=== PATIENT | male | born 1940 | race Caucasian/White ===

== ENCOUNTER 2016-10-19 11:30 | Outpatient (CLI) | payer BC, MEDICARE | END 2016-10-19 11:31 | disposition home or self-care (01) | DX: R53.1 Weakness (principal); R62.7 Adult failure to thrive ==

== ENCOUNTER 2021-01-18 19:10 | Outpatient (CLI) | payer BC, MEDICARE | END 2021-01-18 19:11 | disposition EMS.NT | LOC: EMS 19:10 | DX: Z04.3 Encounter for examination and observation following other accident (principal); M25.552 Pain in left hip ==

== ENCOUNTER 2021-01-19 08:51 | Outpatient (CLI) | payer BC, MEDICARE | END 2021-01-19 08:52 | disposition short-term general hospital (02) | LOC: EMS 08:51 | DX: M25.552 Pain in left hip (principal) | CPT/HCPCS: A0425; A0427 ==

== ENCOUNTER 2021-04-27 17:17 | Emergency (ER) | payer BC, MEDICARE ==
--- NOTE | 2021-04-27 18:29 | XRAY Report ---
PROCEDURE: Toe(s) RT INDICATIONS: pain after being stepped on with walker TECHNIQUE: 3 views of the right toe(s) acquired. COMPARISON: Foot radiographs dated 11/13/2018 FINDINGS: Bones: No fractures or dislocations. No suspicious bony lesions. Chronic erosion involving the bas e of the great toe proximal phalanx appears unchanged. Soft tissues: No suspicious soft tissue densities. Scattered vascular calcifications. IMPRESSION: No definite fracture however follow-up radiographs in 10 days could be performed if the patient's sym ptoms do not improve to exclude occult fracture/assess for healing sclerosis. Chronic first MTP joint erosion as above Reviewed by: Shahid Johnson MD on 04/27/2021 6:28 PM PST Approved by: Shahid Johnson MD on 04/27/2021 6:28 PM PST Station ID: [id number]
--- NOTE | 2021-04-27 19:04 | ED Physician Documentation ---
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 This injury began about 2 weeks ago when he was transferring from a wheelchair to a chair lift. He accidentally put the walker down on his foot and put the fourth weight of himself onto the walker. He has had pain since. However over time he has developed a thickened dry black eschar on the dorsum of this toe with pain. He has had no fevers or red streaking. Patient reports that he often has shooting pains in his leg when attempting to walk and because of this he cannot walk far for the last 7-10 days. Past medical history is most significant for diabetes as well as coronary artery disease. He did undergo a left hip replacement at [facility] about 1 month ago. He subsequently had a UT while in rehab and was again treated at [facility]. pmh: htn, DMII, CAD s/p cardiac stending SURG: coronary stents; left hip replacement Review of Systems Constitutional: denies: Fever Eyes: reports: Reviewed and negative Ears: reports: Reviewed and negative Nose: reports: Reviewed and negative Throat: reports: Reviewed and negative Cardiac: reports: Reviewed and negative Respiratory: reports: Reviewed and negative Skin: reports: Lesions Musculoskeletal: reports: Extremity pain (Right index toe) PD PAST MEDICAL HISTORY - Past Medical History Past Medical History: Yes Cardiovascular: Hypertension Respiratory: Other Endocrine/Autoimmune: Type 2 diabetes GI: None : None HEENT: Other Psych: None Musculoskeletal: None Derm: None - Past Surgical History Past Surgical History: Yes HEENT: Cataracts - Present Medications Home Medications: Ambulatory Orders Medication Instructions Recorded Confirmed Aspirin 81 mg PO DAILY 08/31/13 04/27/21 Lisinopril/Hydrochlorothiazide 1 each PO BID 08/31/13 04/27/21 [Lisinopril-Hctz 20-12.5 mg Tab] Metformin HCl [Fortamet] 1,000 mg PO BID 08/31/13 04/27/21 Metoprolol Succinate 100 mg PO BID 08/31/13 04/27/21 NIFEdipine [Procardia Xl] 90 mg PO BID 08/31/13 04/27/21 Spironolactone 50 mg PO DAILY 08/31/13 04/27/21 Atorvastatin Calcium [Lipitor] 80 mg PO HS 04/27/21 04/27/21 Colchicine 0.6 mg PO BID 04/27/21 04/27/21 Gabapentin [Neurontin] 600 mg PO BID 04/27/21 04/27/21 Glimepiride 1 mg PO DAILY 04/27/21 04/27/21 Loratadine [Claritin] 10 mg PO DAILY 04/27/21 04/27/21 Sod Polystyrene Sulf. [Kayexalate] 15 gm PO ONCE #60 ml 04/27/21 allopurinoL [Allopurinol] 300 mg PO BID 04/27/21 04/27/21 - Allergies Allergies/Adverse Reactions: Allergies Allergy/AdvReac Type Severity Reaction Status Date / Time No Known Drug Allergies Allergy Verified 04/27/21 17:23 - Social History Does the pt smoke?: No Smoking Status: Never smoker Does the pt drink ETOH?: No Does the pt have substance abuse?: No PD ED PE EXPANDED - General General: Alert, No acute distress - Cardiac Cardiac: Regular Rate, Radial strong equal, Cap refill < 2 sec. No: Murmur Present, Pedal strong equal - Respiratory Respiratory: Clear to ausultation ezra. No: Distress, Labored - Abdomen Abdomen: Normal Bowel sounds. No: Tender to palpation - Extremities Extremities: Right foot (1+ DP pulse of the right foot. Brisk cap refill and warm digits. The right index toe is noted to have a thick dry black eschar/dry gangrene on the dorsum from the DIP to the nailbed.) - Neuro Neuro: Alert and Oriented X 3, CNII-XII intact - GCS Eye Opening: Spontaneous Motor: Obeys Commands Verbal: Oriented Total: 15 Results - Vitals Vitals: Vital Signs - 24 hr 04/27/21 17:23 Temperature 36.5 C Heart Rate 77 Respiratory 16 Rate Blood Pressure 133/64 H O2 Saturation 97 Oxygen O2 Source Room air - EKG (time done) 2051 Rate: Rate (enter#) (84) Rhythm: NSR [place]: Normal Intervals: Prolonged OR, Prolonged QT QRS: Low voltage Ischemia: Non specific changes Compare to prior EKG: Old EKG unavailable Computer interpretation: Agree with computer - Labs Labs: Laboratory Tests 11/05/0704/27/21 04/27/21 18:56 18:56 18:56 WBC 12.9 H RBC 4.18 L Hgb 12.5 L Hct 40.6 L MCV 97.1 H MCH 29.9 MCHC 30.8 L RDW 14.6 Plt Count 285 MPV 12.5 H Neut # (Auto) 8.2 H Lymph # (Auto) 3.1 Baxter # (Auto) 0.7 Eos # (Auto) 0.7 Baso # (Auto) 0.1 Absolute Nucleated RBC 0.00 Nucleated RBC % 0.0 ESR 27 H Sodium 141 Potassium 6.0 H* Chloride 108 Carbon Dioxide 24 Anion Gap 9.0 BUN 41 H Creatinine 1.3 H Estimated GFR (MDRD) 53 L Glucose 72 Lactic Acid Calcium 10.4 H Total Bilirubin 0.4 AST 24 ALT 24 Alkaline Phosphatase 82 C-Reactive Protein < 1.0 Total Protein 8.4 H Albumin 4.5 Globulin 3.9 Albumin/Globulin Ratio 1.2 Lipase 31 04/27/21 20:16 WBC RBC Hgb Hct MCV MCH MCHC RDW Plt Count MPV Neut # (Auto) Lymph # (Auto) Baxter # (Auto) Eos # (Auto) Baso # (Auto) Absolute Nucleated RBC Nucleated RBC % ESR Sodium Potassium Chloride Carbon Dioxide Anion Gap BUN Creatinine Estimated GFR (MDRD) Glucose Lactic Acid 1.1 Calcium Total Bilirubin AST ALT Alkaline Phosphatase C-Reactive Protein Total Protein Albumin Globulin Albumin/Globulin Ratio Lipase - Rads (name of study) right toes Radiology: Final report received (No definitive fracture. However there is chronic first MTP joint erosion) Right leg arterial US Radiology: Final report received (Admit to distal superficial femoral artery. Greater than 50% stenosis involving the right common femoral artery in the right mid superficial femoral artery. Severe atherosclerosis) PD MEDICAL DECISION MAKING - ED course Complexity details: reviewed results, re-evaluated patient, d/w qm consultant (Coleen) ED course: 80-year-old male presents the emergency department for evaluation of dry gangrene on the dorsum of his right index toe that began about 2 weeks ago after he accidentally placed the full weight of himself on his walker which was inadvertently placed on the toe. I discussed this case with on-call orthopedist Dr. Horne. He feels that the dry gangrene is most likely customer development representative of a vascular problem and not secondary to trauma despite the preceding history. Here in the emergency department he would recommend an arterial ultrasound to ensure good blood flow but the patient likely needs referral to wound and or vascular surgeon for further follow-up. Pt does have a warm and well perfused foot but only a 1+ pedal pulse. 1944: Patient is noted to have an elevated potassium of 6.0. Screening EKG has been ordered. Patient will be given a dose of Kayexalate as well as Lasix here in the ER. 2029:Arterial ultrasound has been completed and it does show severe high-grade stenosis at the level of the common femoral artery. The distal femoral artery is 100% occluded. The patient does have multiple collaterals. We have reached out to [facility] where he is received the majority of his care however they have no vascular surgery on-call thus we are reaching out to [facility]. 2129: I have spoken with Dr. Coronado Vascular surgeon on-call at [facility]. She feels that the occlusion is likely chronic in nature given that he has a warm foot and adequate collateral flow. However she would recommend prompt follow-up with vascular surgery as well as podiatry. [facility] will be calling the patient for follow-up on Saturday next week. They do not recommend any antibiotics for the dry gangrene instead they simply recommend painting the gangrene with Betadine swabs twice daily. The plan and findings were discussed with the patient and his at the bedside. The number for vascular surgery was given. We discussed the mild hyperkalemia. There were no EKG changes. He was given a dose of Kayexalate and Lasix here in the ER and I have ordered 1 additional dose of Kayexalate to be taken tomorrow. I have also requested that they follow-up with his primary care doctor to have repeat chemistry done in the next 48 to 72 hours. Otherwise emergent return precautions were discussed. Departure - Departure Clinical Impression: Dry gangrene, Occlusion of right femoral artery, Hyperkalemia Condition: Stable Record reviewed to determine appropriate education?: Yes Follow-Up: MASON MARINELLI [Primary Care Provider] - Prescriptions: Sod Polystyrene Sulf. [Kayexalate] 15 gm PO ONCE #60 ml Comments: Odin gonzales were seen in the emergency department today for a right small toe injury. The skin changes and blackness on the top of your toes called dry gangrene. This results when the skin itself dies. It is possible in the long-term that this black leather-like skin changes will simply peel away and it will he be healed underneath. Please paint the dry gangrene with the iodine or Betadine swabs 2 times a day. The arterial ultrasound of your leg show significant occlusion and narrowing of the femoral arteries in your leg. However this has occurred over a long time. Because of this you have adequate collateral blood flow. I have spoken with vascular surgery at [facility]. They do not recommend you transfer to their facility [facility] but they would like to expedite you being seen early next week at their vascular clinic. They will be calling you to arrange follow-up on Saturday. If you do not hear from them you can call them at [phone] Your screening labs today did show a mildly elevated potassium. We did give you a dose of Lasix as well is a medication called Kayexalate that should help reduce your potassium levels. I would like you to take 1 additional dose of Kayexalate tomorrow. This prescription has been sent to the pharmacy in [facility]. Please discuss this ED visit with your primary care provider. I would like her to order a repeat screening chemistry/potassium level in the next 48 to 72 hours. If at any point you find that you are having increased skin changes in your right leg, you have pain when walking in your leg or calf, you have dusky or purple toes, you have increased pain in the foot, or you develop any fevers then please return immediately to the emergency department
[2021-04-27 19:07] LABS: BASOPHILS # (AUTO) 0.1 10^3/uL (0.0-0.1); BASOPHILS % (AUTO) 0.5 %; EOSINOPHILS # (AUTO) 0.7 10^3/uL (0.0-0.7); EOSINOPHILS % (AUTO) 5.6 %; HCT - HEMATOCRIT 40.6 % (42.0-52.0); HGB - HEMOGLOBIN 12.5 g/dL (14.0-18.0); LYMPHOCYTES # (AUTO) 3.1 10^3/uL (1.5-3.5); LYMPHOCYTES % (AUTO) 24.3 %; MEAN CORPUSCULAR HEMOGLOBIN 29.9 pg (27.0-31.0); MEAN CORPUSCULAR HGB CONC 30.8 g/dL (32.0-36.0); MEAN CORPUSCULAR VOLUME 97.1 fL (80.0-94.0); MEAN PLATELET VOLUME 12.5 fL (7.4-11.4); MONOCYTES # (AUTO) 0.7 10^3/uL (0.0-1.0); MONOCYTES % (AUTO) 5.8 %; NEUTROPHILS # (AUTO) 8.2 10^3/uL (1.5-6.6); NEUTROPHILS % (AUTO) 63.4 %; PLT - PLATELET COUNT 285 10^3/uL (130-450); RED BLOOD COUNT 4.18 10^6/uL (4.70-6.10); RED CELL DISTRIBUTION WIDTH 14.6 % (12.0-15.0); WHITE BLOOD COUNT 12.9 x10^3/uL (4.8-10.8)
[2021-04-27 19:34] LABS: ALBUMIN 4.5 g/dL (3.2-5.5); ALBUMIN/GLOBULIN RATIO 1.2 (1.0-2.2); ALKALINE PHOSPHATASE 82 IU/L (42-121); ALT ALANINE AMINOTRANSFERASE 24 IU/L (10-60); AST ASPARTATE AMINOTRANSFERASE 24 IU/L (10-42); BILIRUBIN,TOTAL 0.4 mg/dL (0.2-1.0); BUN - BLOOD UREA NITROGEN 41 mg/dL (6-20); CALCIUM 10.4 mg/dL (8.5-10.3); CARBON DIOXIDE - CO2 24 mmol/L (21-32); CHLORIDE 108 mmol/L (101-111); CREATININE 1.3 mg/dL (0.6-1.2); CRP - C-REACTIVE PROTEIN < 1.0 mg/dL (0-1.0); GFR - MDRD 53 (>89); GLUCOSE 72 mg/dL (70-100); LIPASE 31 U/L (22-51); SODIUM 141 mmol/L (135-145); TOTAL PROTEIN 8.4 g/dL (6.7-8.2)
[2021-04-27] MEDS ORDERED: SODIUM POLYSTYRENE SULFONATE 15 GM/60 ML BOTTLE PO STA (19:37)
[2021-04-27] MEDS ORDERED: FUROSEMIDE 20 MG/2 ML VIAL IVP STA (19:47)
[2021-04-27] MEDS ORDERED: SODIUM CHLORIDE 0.9% 1,000 ML IV STA (19:56)
--- NOTE | 2021-04-27 20:51 | Ultrasound Report ---
PROCEDURE: Duplex Lwr Ext Arterial RT INDICATIONS: dry gangrene after trauma on index toe TECHNIQUE: Color and pulse Doppler interrogation was performed of the right lower extremity arterial system, wit h image documentation. COMPARISON: None FINDINGS: Common femoral artery: 480 cm/sec, with monophasic flow. Deep femoral artery: 47 cm/sec, with biphasic flow. Proximal superficial femoral artery: 44 cm/sec, with monophasic flow. Mid superficial femoral artery: 196 cm/sec, with monophasic flow. Distal superficial femoral artery: Appears occluded Popliteal artery: 25 cm/sec, with monophasic flow. Posterior tibial artery: 27 cm/sec, with monophasic flow. Anterior tibial artery/dorsalis pedis: 19 cm/sec, with monophasic flow. Heath-scale imaging description: There is severe diffuse calcified plaque IMPRESSION: Occluded mid to distal superficial femoral artery. Greater than 50% stenosis involving the right common femoral artery, in the mid right superficial fem oral artery. Severe atherosclerosis. Reviewed by: Shahid Johnson MD on 04/27/2021 8:50 PM PST Approved by: Shahid Johnson MD on 04/27/2021 8:50 PM PST Station ID: [id number]
[2021-04-27 22:03] VITALS: BP 116/68
== END 2021-04-27 22:01 | disposition home or self-care (01) ==
LOC: ED 17:17
DX: E11.52 Type 2 diabetes mellitus with diabetic peripheral angiopathy with gangrene (principal); I70.261 Atherosclerosis of native arteries of extremities with gangrene, right leg; Z79.84 Long term (current) use of oral hypoglycemic drugs; E87.5 Hyperkalemia; R94.31 Abnormal electrocardiogram [ECG] [EKG]; I10 Essential (primary) hypertension; I25.10 Atherosclerotic heart disease of native coronary artery without angina pectoris; I25.2 Old myocardial infarction; Z95.5 Presence of coronary angioplasty implant and graft; Z96.642 Presence of left artificial hip joint; Z79.82 Long term (current) use of aspirin
CPT/HCPCS: 36415; 73660; 80053; 83605; 83690; 85025; 85651; 86140; 93005; 93926; 96374; 99284; A9270

== ENCOUNTER 2023-07-15 13:44 | Outpatient (CLI) | payer BC, MEDICARE ==
[2023-07-15 19:43] LABS: BASOPHILS # (AUTO) 0.1 10^3/uL (0.0-0.1); BASOPHILS % (AUTO) 0.6 %; EOSINOPHILS # (AUTO) 0.5 10^3/uL (0.0-0.7); EOSINOPHILS % (AUTO) 5.5 %; HCT - HEMATOCRIT 41.5 % (42.0-52.0); HGB - HEMOGLOBIN 13.1 g/dL (14.0-18.0); LYMPHOCYTES # (AUTO) 2.1 10^3/uL (1.5-3.5); LYMPHOCYTES % (AUTO) 22.8 %; MEAN CORPUSCULAR HEMOGLOBIN 30.5 pg (27.0-31.0); MEAN CORPUSCULAR HGB CONC 31.6 g/dL (32.0-36.0); MEAN CORPUSCULAR VOLUME 96.5 fL (80.0-94.0); MEAN PLATELET VOLUME 13.2 fL (7.4-11.4); MONOCYTES # (AUTO) 0.8 10^3/uL (0.0-1.0); MONOCYTES % (AUTO) 8.1 %; NEUTROPHILS # (AUTO) 5.9 10^3/uL (1.5-6.6); NEUTROPHILS % (AUTO) 62.6 %; PLT - PLATELET COUNT 248 10^3/uL (130-450); WHITE BLOOD COUNT 9.4 x10^3/uL (4.8-10.8)
[2023-07-15 20:06] LABS: THYROID STIMULATING HORMONE 1.26 uIU/mL (0.34-5.60)
[2023-07-15 20:11] LABS: ALBUMIN 3.9 g/dL (3.2-5.5); ALBUMIN/GLOBULIN RATIO 1.3 (1.0-2.2); ALKALINE PHOSPHATASE 71 IU/L (42-121); ALT ALANINE AMINOTRANSFERASE 21 IU/L (10-60); AST ASPARTATE AMINOTRANSFERASE 22 IU/L (10-42); BILIRUBIN,TOTAL 0.8 mg/dL (0.2-1.0); BUN - BLOOD UREA NITROGEN 22 mg/dL (6-20); CALCIUM 9.7 mg/dL (8.5-10.3); CARBON DIOXIDE - CO2 27 mmol/L (21-32); CHLORIDE 106 mmol/L (101-111); CHOL/HDL RATIO 3.5 (<5.0); CHOLESTEROL 148 mg/dL; CREATININE 1.2 mg/dL (0.6-1.3); GFR - MDRD 58 (>89); GLUCOSE 75 mg/dL (74-104); HDL CHOLESTEROL 42 mg/dL; LDL CHOLESTEROL,CALCULATED 74 mg/dL; LDL/HDL RATIO 1.8 (<3.6); POTASSIUM 4.2 mmol/L (3.5-4.5); SODIUM 140 mmol/L (135-145); TRIGLYCERIDES 160 mg/dL (48-352); URIC ACID 6.8 mg/dL (4.4-7.6); VLDL CHOLESTEROL 32 mg/dL
[2023-07-15 21:09] LABS: ESTIMATED AVERAGE GLUCOSE 131 mg/dL (70-100); HEMOGLOBIN A1c% 6.2 % (4.27-6.07)
[2023-07-16 20:29] LABS: CREATININE,URINE 85.8 mg/dL
[2023-07-16 20:39] LABS: MICROALBUM/CREATININE RATIO,UR 1193.5 ug/mg (<30.0); MICROALBUMIN,URINE 102.4 mg/dL
== END 2023-07-15 13:45 | disposition home or self-care (01) ==
LOC: LAB.S 13:44
PROVIDERS: ATTEND Hospitalist
DX: I10 Essential (primary) hypertension (principal); E11.3533 Type 2 diabetes mellitus with proliferative diabetic retinopathy with traction retinal detachment not involving the macula, bilateral; E78.00 Pure hypercholesterolemia, unspecified; N25.81 Secondary hyperparathyroidism of renal origin; M1A.0790 Idiopathic chronic gout, unspecified ankle and foot, without tophus (tophi); D47.3 Essential (hemorrhagic) thrombocythemia
CPT/HCPCS: 36415; 80053; 80061; 82043; 82570; 83036; 83721; 84443; 84550; 85025

== ENCOUNTER 2023-10-08 13:30 | Outpatient (CLI) | payer BC, MEDICARE | END 2023-10-08 23:59 | disposition EMS.NT | LOC: EMS 13:30 | DX: R53.1 Weakness (principal) ==